=== PATIENT | male | born 2000 | race Caucasian/White ===

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

== ENCOUNTER 2022-12-14 08:53 | Emergency (ER) | payer OTHER ==
[~2022-12-14] VITALS: Ht 157.4 cm; Wt 81.6 kg
[~2022-12-14 08:53] MED LIST changes: +BENADRYL ALLERG25 M5 PO
[2022-12-14] MEDS ORDERED: CLEOCIN HCL150 MG PO (10:01)
== END 2022-12-14 10:03 | disposition home or self-care (01) ==
LOC: ED 08:53
DX: K08.89 Other specified disorders of teeth and supporting structures (principal); Z88.0 Allergy status to penicillin

== ENCOUNTER 2024-02-09 12:31 | Emergency (ER) | payer OTHER ==
[~2024-02-09] VITALS: Ht 162.5 cm; Wt 79.4 kg
[~2024-02-09 12:31] MED LIST changes: +CLEOCIN HCL150 MG PO
[2024-02-09] MEDS ORDERED: CLINDAMYCIN HC300 MG PO (13:12)
[2024-02-09] MEDS ORDERED: Motrin,Rufen800 MG PO (13:12)
[2024-02-09] MEDS ORDERED: Lidocaine Hydrochloride 15 ML UDC PO STA (13:13)
[2024-02-09] MEDS ORDERED: BENZOCAINE 20% 11.9 GM GEL T STA (13:13)
[2024-02-09] MEDS ORDERED: CLINDAMYCIN HCL 300 MG CAPSULE PO ONE (13:15)
[2024-02-09] MEDS ORDERED: IBUPROFEN 800 MG TAB PO ONE (13:15)
== END 2024-02-09 13:27 | disposition home or self-care (01) ==
LOC: ED 12:31
DX: K04.7 Periapical abscess without sinus (principal); K02.9 Dental caries, unspecified; F90.9 Attention-deficit hyperactivity disorder, unspecified type; Z88.0 Allergy status to penicillin; Z87.891 Personal history of nicotine dependence

== ENCOUNTER 2025-10-02 10:40 | Emergency (ER) | payer SELFPAY ==
[~2025-10-02] VITALS: Ht 165.1 cm; Wt 90.7 kg
[~2025-10-02 10:40] MED LIST changes: +CLINDAMYCIN HC300 MG PO; +Motrin,Rufen800 MG PO
[2025-10-02] MEDS ORDERED: CLINDAMYCIN HC300 MG PO (11:11)
[2025-10-02] MEDS ORDERED: NAPROSYN500 MG PO (11:11)
== END 2025-10-02 11:20 | disposition home or self-care (01) ==
LOC: ED 10:40
DX: K02.9 Dental caries, unspecified (principal); Z88.0 Allergy status to penicillin